=== PATIENT | male | born 1985 | race African-American/Black ===

== ENCOUNTER 2020-10-20 15:07 | Emergency (ER) | payer OTHER ==
[2020-10-20 15:25] VITALS: BP 129/75; PULSE 67; RESP 16; TEMP 98.4
--- NOTE | 2020-10-20 16:11 | ED ---
Skin/Abscess/FB HPI - General Chief complaint: Skin/Abscess/Foreign Body Stated complaint: Male Source: patient Mode of arrival: ambulatory Limitations: no limitations - History of Present Illness Initial comments: 34yo male presenting for penile irriation x 2 weeks. pt states that his penis has been hurting on the "top side" anytime it rubs on anything or if he has sex. denies ulceration, penile discharge dysuria urgency frequency he denies any redness or swelling of the tip of the penis. Patient denies any itching at the base. Patient has no additional complaints he states that his only irritated along the shaft. Patient denies fevers chills. Remaining systems negative - Related Data Previous Rx's Medication Instructions Recorded Acyclovir [Zovirax] 400 mg PO TID 7 Days #21 tab 10/20/20 Cephalexin [Keflex] 500 mg PO Q8HR 7 Days #21 cap 10/20/20 Allergies Allergy/AdvReac Type Severity Reaction Status Date / Time No Known Allergies Allergy Verified 10/20/20 15:22 Review of Systems ROS Statement: Those systems with pertinent positive or pertinent negative responses have been documented in the HPI. ROS Other: All systems not noted in ROS Statement are negative. Past Medical History Past Medical History: No Reported History History of Any Multi-Drug Resistant Organisms: None Reported Past Surgical History: No Surgical Hx Reported Past Psychological History: No Psychological Hx Reported Smoking Status: Never smoker Past Alcohol Use History: None Reported Past Drug Use History: None Reported General Exam - General Exam Comments Initial Comments: General: The patient is awake and alert, in no distress, and does not appear acutely ill. Eye: Pupils are equal, round and reactive to light, extra-ocular movements are intact. No nystagmus. There is normal conjunctiva bilaterally. No signs of icterus. Gastrointestinal: Soft, non-distended, non-tender abdomen without masses or organomegaly noted. There is no rebound or guarding present. : Small area of redness of dorsum of penis, no vesicular lesions, no diffuse redness, no ulcerations, no penile discharge, no glans swelling. circumsized. Musculoskeletal: Normal ROM, no tenderness. Strength 5/5. Sensation intact. Pulses equal bilaterally 2+. Neurological: A&O x 3. CN II-XII intact grossly, There are no obvious motor or sensory deficits. Coordination appears grossly intact. Speech is normal. Skin: Skin is warm and dry and no rashes or lesions are noted. Psychiatric: Cooperative, appropriate mood & affect, normal judgment. Limitations: no limitations Course Vital Signs 10/20/20 15:22 Temperature 98.4 F Pulse Rate 67 Respiratory 16 Rate Blood Pressure 129/75 O2 Sat by Pulse 100 Oximetry Medical Decision Making - Medical Decision Making herpes testing pending. no obvious diffuse cellulitis, no abscess, no vesicle or ulceration. one small < 1cm area of redness, swabbed and will initiated keflex and acyclovir and recommend pcp f/u. patient is agreeable to this care plan and discharge a this time. Disposition Clinical Impression: Penile pain Disposition: HOME SELF-CARE Condition: Good Instructions (If sedation given, give patient instructions): Genital Herpes Simplex (ED), Cellulitis (ED) Additional Instructions: Please use medication as discussed. Please follow-up with family doctor in the next 2 days. Please return to emergency room if the symptoms increase or worsen or for any other concerns. Prescriptions: Cephalexin [Keflex] 500 mg PO Q8HR 7 Days #21 cap Acyclovir [Zovirax] 400 mg PO TID 7 Days #21 tab Is patient prescribed a controlled substance at d/c from ED?: No Referrals: Nonstaff,Physician [Primary Care Provider] - 1-2 days [facility] [NON-STAFF] - 1-2 days Time of Disposition: 16:08
[2020-10-20 16:36] LABS: Appearance,Urine Clear (Clear); Bilirubin,Urine Negative (Negative); Blood,Urine Negative (Negative); Color,Urine Yellow; Glucose,Urine (UA) Negative (Negative); Ketones,Urine Negative (Negative); Leukocyte Esterase,Urine Negative (Negative); Nitrite,Urine Negative (Negative); PH, Urine 7.5 (5.0-8.0); Protein,Urine Negative (Negative); Specific Gravity,Urine 1.017 (1.001-1.035); Urobilinogen,Urine <2.0 mg/dL (<2.0)
== END 2020-10-20 16:18 | disposition home or self-care (01) ==
LOC: EC 15:07
DX: N48.89 Other specified disorders of penis (principal)
CPT/HCPCS: 81003; 87491; 87529; 87591; 99283

== ENCOUNTER 2021-02-10 06:48 | Emergency (ER) | payer OTHER ==
[2021-02-10 06:59] VITALS: BP 118/72; PULSE 71; RESP 20; TEMP 97.9
== END 2021-02-10 08:19 | disposition home or self-care (01) ==
LOC: EC 06:48
DX: Z53.21 Procedure and treatment not carried out due to patient leaving prior to being seen by health care provider (principal)
CPT/HCPCS: 99499

== ENCOUNTER → 2021-02-25 | Outpatient (CLI) | payer OTHER ==
--- NOTE | 2021-02-25 11:05 | FL ---
EXAMINATION TYPE: FL barium swallow DATE OF EXAM: 02/25/2021 CLINICAL HISTORY: Halitosis TECHNIQUE: A double contrast esophagram is performed utilizing air and barium. A total of 29 second s of fluoroscopic time was utilized during procedure and 38 images obtained. COMPARISON: None FINDINGS: The esophagus shows normal motility and emptying into the stomach. No evidence of hiatal h ernia or stricture noted. No significant gastroesophageal reflux was seen during real time performanc e of this study. IMPRESSION: No significant abnormality is seen to account for patient's symptoms.
== END | disposition home or self-care (01) ==
LOC: RADUSWWP 09:15
PROVIDERS: ATTEND Family Medicine
DX: R19.6 Halitosis (principal)
CPT/HCPCS: 74220

== ENCOUNTER 2021-08-11 06:55 | Emergency (ER) | payer OTHER ==
[2021-08-11 06:59] VITALS: BP 128/77; PULSE 77; RESP 22; TEMP 99.5
[2021-08-11] MEDS ORDERED: cefTRIAXone 500 MG VIAL IM STA (07:12)
[2021-08-11] MEDS ORDERED: metroNIDAZOLE 500 MG TAB PO STA (07:12)
[2021-08-11 07:37] LABS: Appearance,Urine Clear (Clear); Bilirubin,Urine Negative (Negative); Blood,Urine Negative (Negative); Color,Urine Light Yellow; Glucose,Urine (UA) Negative (Negative); Ketones,Urine Negative (Negative); Leukocyte Esterase,Urine Negative (Negative); Nitrite,Urine Negative (Negative); Protein,Urine Negative (Negative); Specific Gravity,Urine 1.015 (1.001-1.035); Urobilinogen,Urine <2.0 mg/dL (<2.0)
--- NOTE | 2021-08-11 07:42 | ED ---
Male Urogenital HPI - General Chief complaint: Urogenital Stated complaint: STD Test Time Seen by Provider: 08/11/21 07:01 Source: patient, RN notes reviewed Mode of arrival: ambulatory Limitations: no limitations - History of Present Illness Initial comments: Patient is a 35-year-old male that presents to the emergency department complaining of penile discharge and urinary her. Patient notes he has had 2 sexual partners in the last 2 weeks. Patient notes that these are going to [facility]. Patient denied knowing her sexual history and isn't sure if they've been exposed to STDs or have an STD. Patient presented for STD screening and antibiotics. Patient denied any other issues or complaints. He was otherwise well-appearing. He denied chest pain shortness breath headache nausea vomiting diarrhea constipation fever fatigue chills. - Related Data Previous Rx's Medication Instructions Recorded Acyclovir [Zovirax] 400 mg PO TID 7 Days #21 tab 10/20/20 Cephalexin [Keflex] 500 mg PO Q8HR 7 Days #21 cap 10/20/20 Doxycycline Monohydrate [Monodox] 100 mg PO Q12HR 7 Days #14 cap 08/11/21 Allergies Allergy/AdvReac Type Severity Reaction Status Date / Time No Known Allergies Allergy Verified 08/11/21 06:58 Review of Systems ROS Statement: Those systems with pertinent positive or pertinent negative responses have been documented in the HPI. ROS Other: All systems not noted in ROS Statement are negative. Past Medical History Past Medical History: No Reported History History of Any Multi-Drug Resistant Organisms: None Reported Past Surgical History: No Surgical Hx Reported Past Psychological History: No Psychological Hx Reported Smoking Status: Never smoker Past Alcohol Use History: None Reported Past Drug Use History: None Reported General Exam Limitations: no limitations General appearance: alert, in no apparent distress Head exam: Present: atraumatic, normocephalic, normal inspection Eye exam: Present: normal appearance, PERRL, EOMI. Absent: scleral icterus, conjunctival injection, periorbital swelling ENT exam: Present: normal exam, mucous membranes moist Neck exam: Present: normal inspection Respiratory exam: Present: normal lung sounds bilaterally. Absent: respiratory distress, wheezes, rales, rhonchi, stridor Cardiovascular Exam: Present: regular rate, normal rhythm, normal heart sounds. Absent: systolic murmur, diastolic murmur, rubs, gallop, clicks Extremities exam: Present: normal inspection, full ROM, normal capillary refill. Absent: tenderness, pedal edema, joint swelling, calf tenderness Neurological exam: Present: alert, oriented X3 Psychiatric exam: Present: normal affect, normal mood Skin exam: Present: warm, dry, intact, normal color. Absent: rash Course Vital Signs 08/11/21 06:56 Temperature 99.5 F Pulse Rate 77 Respiratory 22 Rate Blood Pressure 128/77 O2 Sat by Pulse 98 Oximetry Medical Decision Making - Medical Decision Making 35-year-old male concern for STD presenting for screening. Urinalysis, gonorrhea and chlamydia test ordered. 500 mg of Rocephin, 2 g of metronidazole ordered. Patient will be sent doxycycline to pharmacy. Case discussed with Dr. Garza, patient discharge home. - Lab Data Lab Results 08/11/21 Range/Units 07:25 Urine Color Light Yellow Urine Appearance Clear (Clear) Urine pH 8.0 (5.0-8.0) Ur Specific [place] 1.015 (1.001-1.035) Urine Protein Negative (Negative) Urine Glucose (UA) Negative (Negative) Urine Ketones Negative (Negative) Urine Blood Negative (Negative) Urine Nitrite Negative (Negative) Urine Bilirubin Negative (Negative) Urine Urobilinogen <2.0 (<2.0) mg/dL Ur Leukocyte Esterase Negative (Negative) Disposition Clinical Impression: Screening for STD (sexually transmitted disease) Disposition: HOME SELF-CARE Condition: Stable Instructions (If sedation given, give patient instructions): Urinary Tract Infection in Men (ED), Chlamydia (ED) Additional Instructions: Please return to the Emergency Department if symptoms worsen or any other concerns. Follow-up with primary care in 1-2 days. Take antibiotics as prescribed. No intercourse for at least 2 weeks. Inform partners to get tested. Prescriptions: Doxycycline Monohydrate [Monodox] 100 mg PO Q12HR 7 Days #14 cap Is patient prescribed a controlled substance at d/c from ED?: No Referrals: None,Stated [Primary Care Provider] - 1-2 days Time of Disposition: 07:41
[2021-08-12 12:49] LABS: C. trachomatis,PCR Negative (Neg,Equiv); Chlamydia trachomatis Source Urine; N. gonorrhoeae,PCR Negative (Neg,Equiv); Neisseria Source Urine
== END 2021-08-11 07:47 | disposition home or self-care (01) ==
LOC: EC 06:55
DX: Z11.3 Encounter for screening for infections with a predominantly sexual mode of transmission (principal)
CPT/HCPCS: 81003; 87491; 87591; 99283; 96372; J0696

== ENCOUNTER 2021-09-05 08:10 | Emergency (ER) | payer OTHER ==
[2021-09-05 08:21] VITALS: BP 125/80; PULSE 67; RESP 18; TEMP 98.1
--- NOTE | 2021-09-05 08:32 | ED ---
General Adult HPI - General Chief complaint: Urogenital Stated complaint: Male Time Seen by Provider: 09/05/21 08:22 Source: patient, RN notes reviewed Mode of arrival: ambulatory Limitations: no limitations - History of Present Illness Initial comments: Patient is a pleasant 35-year-old male presenting to the emergency department with concern for urethral drainage. Onset was around a week ago. Patient did have similar symptoms in the past associated with STD. Patient has mild dysuria. No fever. No rash. No abdominal pain. - Related Data Previous Rx's Medication Instructions Recorded Acyclovir [Zovirax] 400 mg PO TID 7 Days #21 tab 10/20/20 Cephalexin [Keflex] 500 mg PO Q8HR 7 Days #21 cap 10/20/20 Doxycycline Monohydrate [Monodox] 100 mg PO Q12HR 7 Days #14 cap 08/11/21 Doxycycline [Vibramycin] 100 mg PO BID 1 Days #14 capsule 09/05/21 Allergies Allergy/AdvReac Type Severity Reaction Status Date / Time No Known Allergies Allergy Verified 09/05/21 08:18 Review of Systems ROS Statement: Those systems with pertinent positive or pertinent negative responses have been documented in the HPI. ROS Other: All systems not noted in ROS Statement are negative. Constitutional: Denies: fever Eyes: Denies: eye pain ENT: Denies: ear pain Respiratory: Denies: cough Cardiovascular: Denies: chest pain Endocrine: Denies: fatigue Gastrointestinal: Denies: abdominal pain Genitourinary: Reports: as per HPI Skin: Denies: rash Neurological: Denies: weakness Past Medical History Past Medical History: No Reported History History of Any Multi-Drug Resistant Organisms: None Reported Past Surgical History: No Surgical Hx Reported Past Psychological History: No Psychological Hx Reported Smoking Status: Never smoker Past Alcohol Use History: Occasional Past Drug Use History: None Reported General Exam Limitations: no limitations General appearance: alert, in no apparent distress Eye exam: Present: normal appearance Respiratory exam: Present: normal lung sounds bilaterally Cardiovascular Exam: Present: regular rate, normal rhythm GI/Abdominal exam: Present: soft. Absent: tenderness exam: Present: normal inspection Neurological exam: Present: alert Psychiatric exam: Present: normal affect, normal mood Skin exam: Present: normal color Course Vital Signs 09/05/21 08:18 Temperature 98.1 F Pulse Rate 67 Respiratory 18 Rate Blood Pressure 125/80 O2 Sat by Pulse 100 Oximetry Disposition Clinical Impression: Urethritis Disposition: HOME SELF-CARE Condition: Stable Instructions (If sedation given, give patient instructions): Nonspecific Urethritis in Men (ED) Additional Instructions: Prescription has been sent to pharmacy. Please fill and start today. Return for fever, increase rash, abdominal pain, worsening symptoms or other concerns. Prescriptions: Doxycycline [Vibramycin] 100 mg PO BID 1 Days #14 capsule Is patient prescribed a controlled substance at d/c from ED?: No Referrals: Patrick Abarca MD [STAFF PHYSICIAN] - 1-2 days Time of Disposition: 08:31
[2021-09-05] MEDS ORDERED: cefTRIAXone 500 MG VIAL IM STA (08:33)
[2021-09-07 07:39] LABS: C. trachomatis,PCR Negative (Neg,Equiv); Chlamydia trachomatis Source Urine; N. gonorrhoeae,PCR Negative (Neg,Equiv); Neisseria Source Urine
== END 2021-09-05 09:05 | disposition home or self-care (01) ==
LOC: EC 08:10
DX: N34.2 Other urethritis (principal)
CPT/HCPCS: 87491; 87591; 96372; 99283

== ENCOUNTER 2021-09-28 07:34 | Emergency (ER) | payer BC, OTHER ==
[2021-09-28 07:44] VITALS: BP 127/69; PULSE 71; RESP 18; TEMP 98
[2021-09-28] MEDS ORDERED: cefTRIAXone 250 MG VIAL IM STA (08:20)
[2021-09-28] MEDS ORDERED: AZITHROMYCIN 500 MG in SODIUM CHLORIDE 0.9% 250 ML IVPB STA (08:21)
[2021-09-28] MEDS ORDERED: AZITHROMYCIN 500 MG TAB PO STA (08:21)
--- NOTE | 2021-09-28 08:29 | ED ---
General Adult HPI - General Chief complaint: Urogenital Stated complaint: STD Time Seen by Provider: 09/28/21 07:56 Source: patient, RN notes reviewed, old records reviewed Mode of arrival: ambulatory Limitations: no limitations - History of Present Illness Initial comments: 35 -year-old male visiting for STD check. Patient has had urethral irritation for the past several days. He's had unprotected sex is concerned that he needs contracted an STD. He denies discharge. Denies lesion. Denies fever. Denies testicular pain or abdominal pain. - Related Data Previous Rx's Medication Instructions Recorded Acyclovir [Zovirax] 400 mg PO TID 7 Days #21 tab 10/20/20 Cephalexin [Keflex] 500 mg PO Q8HR 7 Days #21 cap 10/20/20 Doxycycline Monohydrate [Monodox] 100 mg PO Q12HR 7 Days #14 cap 08/11/21 Doxycycline [Vibramycin] 100 mg PO BID 1 Days #14 capsule 09/05/21 Allergies Allergy/AdvReac Type Severity Reaction Status Date / Time No Known Allergies Allergy Verified 09/28/21 07:40 Review of Systems ROS Statement: Those systems with pertinent positive or pertinent negative responses have been documented in the HPI. ROS Other: All systems not noted in ROS Statement are negative. Past Medical History Past Medical History: No Reported History History of Any Multi-Drug Resistant Organisms: None Reported Past Surgical History: No Surgical Hx Reported Past Psychological History: No Psychological Hx Reported Smoking Status: Never smoker Past Alcohol Use History: Occasional Past Drug Use History: None Reported General Exam Limitations: no limitations General appearance: alert, in no apparent distress Head exam: Present: atraumatic, normocephalic Eye exam: Present: normal appearance, PERRL ENT exam: Present: normal exam Neck exam: Present: normal inspection. Absent: tenderness, meningismus Respiratory exam: Present: normal lung sounds bilaterally. Absent: respiratory distress, wheezes Cardiovascular Exam: Present: regular rate, normal rhythm GI/Abdominal exam: Present: soft. Absent: distended, tenderness exam: Present: normal inspection. Absent: urethral discharge Extremities exam: Present: normal inspection, normal capillary refill. Absent: joint swelling Course Vital Signs 09/28/21 07:40 Temperature 98 F Pulse Rate 71 Respiratory 18 Rate Blood Pressure 127/69 O2 Sat by Pulse 98 Oximetry Medical Decision Making - Medical Decision Making Patient requesting evaluation and treatment of suspected STDs. He is informed that we are testing only for gonorrhea and chlamydia and no other STDs. He will need to follow with his primary care physician regarding further testing. He does request treatment at this time is treated with ceftriaxone and azithromycin. Patient should follow-up with his primary care physician. Disposition Clinical Impression: Urethritis Disposition: HOME SELF-CARE Condition: Good Instructions (If sedation given, give patient instructions): Sexually Transmitted Diseases (ED) Is patient prescribed a controlled substance at d/c from ED?: No Referrals: Yung Barrera MD [Primary Care Provider] - 1-2 days Time of Disposition: 08:28
[2021-09-28 09:08] LABS: Appearance,Urine Clear (Clear); Bilirubin,Urine Negative (Negative); Blood,Urine Negative (Negative); Color,Urine Light Yellow; Glucose,Urine (UA) Negative (Negative); Ketones,Urine Negative (Negative); Leukocyte Esterase,Urine Negative (Negative); Nitrite,Urine Negative (Negative); PH, Urine 6.5 (5.0-8.0); Protein,Urine Negative (Negative); Specific Gravity,Urine 1.018 (1.001-1.035); Urobilinogen,Urine <2.0 mg/dL (<2.0)
[2021-09-29 14:23] LABS: C. trachomatis,PCR Negative (Neg,Equiv); Chlamydia trachomatis Source Urine; N. gonorrhoeae,PCR Negative (Neg,Equiv); Neisseria Source Urine
== END 2021-09-28 08:57 | disposition home or self-care (01) ==
LOC: EC 07:34
DX: N34.2 Other urethritis (principal)
CPT/HCPCS: 99283; 96372; 81003; 87491; 87591; J0696